=== PATIENT | female | born 1965 | race Caucasian/White ===

== ENCOUNTER 2018-03-07 07:51 | Emergency (ER) | payer OTHER ==
[~2018-03-07] VITALS: Ht 167.6 cm; Wt 90.0 kg
[2018-03-07 07:55] VITALS: Ht 167.6 cm; Wt 90.0 kg
[2018-03-07] MEDS ORDERED: NEXIUM40 MG PO (07:56)
[2018-03-07] MEDS ORDERED: LISINOPRIL10 MG PO (07:56)
[2018-03-07 08:16] LABS: BASOPHILS 0.4 % (0-2); EOSINOPHILS 0.5 % (0-7); HEMATOCRIT 39.9 % (36.0-48.0); IMMATURE GRANULOCYTES 0.2 % (0-5); LYMPHOCYTES 23.7 % (15-50); MCH 29.1 pg (26.0-34.0); MCHC 32.6 g/dL (31.0-37.0); MCV 89.3 fL (80.0-100.0); MEAN PLATELET VOLUME 10.4 fL (7.4-10.4); NEUTROPHILS 68.2 % (40-80); PLATELET COUNT 220 10x3/uL (130-400); RBC 4.47 10x6/uL (4.00-5.40); RDW 17.1 % (11.5-14.5); WBC 5.7 10x3/uL (4.8-10.8)
[2018-03-07 08:34] LABS: ALBUMIN 3.9 g/dL (3.4-5.0); BILIRUBIN - TOTAL 0.39 mg/dL (0.2-1.3); CALCIUM 8.7 mg/dL (8.5-10.1); CARBON DIOXIDE 25.9 mmol/L (21.0-32.0); PROTEIN - SERUM 8.4 g/dL (6.4-8.2)
[2018-03-07 08:35] LABS: APPEARANCE CLEAR (CLEAR); BILIRUBIN NEGATIVE (NEGATIVE); COLOR YELLOW (YELLOW); GLUCOSE NEGATIVE (NEGATIVE); KETONE NEGATIVE (NEGATIVE); NITRITE NEGATIVE (NEGATIVE); PROTEIN NEGATIVE (NEGATIVE); UROBILINOGEN NORMAL (NORMAL)
[2018-03-07 08:35] LABS: POTASSIUM - SERUM 2.9 mmol/L (3.5-5.1)
[2018-03-07 08:36] LABS: BACTERIA MODERATE /hpf (NONE SEEN); EPITHELIAL CELLS 0-5 /hpf (0-5)
[2018-03-07] MEDS ORDERED: CIPRO500 MG PO (10:37)
[2018-03-07] MEDS ORDERED: EFFER-K 25 MEQ25 MEQ PO (10:37)
[2018-03-07] MEDS ORDERED: NORCO 7.5/325 T1 TA1 PO (10:37)
[2018-03-07 10:41] LABS: AMYLASE - SERUM 43 U/L (25-115); LIPASE 102 U/L (73-393)
[2018-03-07 11:19] VITALS: BP 144/78
== END 2018-03-07 11:20 | disposition home or self-care (01) ==
LOC: D.ER 07:51
PROVIDERS: Emergency Medicine
DX: E87.6 Hypokalemia (principal); R10.31 Right lower quadrant pain; I10 Essential (primary) hypertension; K21.9 Gastro-esophageal reflux disease without esophagitis